=== PATIENT | male | born 1985 | race Caucasian/White ===

== ENCOUNTER 2024-08-23 23:22 | Emergency (ER) | payer BC, SELFPAY ==
[2024-08-23 23:27] VITALS: BP 139/98; PULSE 73; RESP 16; TEMP 36.4; O2SAT 98; BMI 25.1
[2024-08-24] MEDS: TETANUS/DIPHTH/PERTUSSIS 0.5 ML SYRINGE IM (01:24)
[2024-08-24] MEDS: cephALEXin 500 MG CAPSULE 1000 MG PO (01:24)
--- OUTSIDE RECORDS SUMMARY | 2024-08-24 01:38 | XMS_ITS | Clinical Summary ---
Author Organization [employer] [facility] Address [address] [place] [id number] Care Team Providers Care Sterile Processing Technologist Name Role Phone Mallorie Colvin FRONT OFFICE COORDINATOR Unavailable Unavailable Júnior Griffin MD Primary Care Provider Allergies Active Allergy Reactions Criticality Noted Date Comments Dust Mites Other - Describe In Comment Field Medium 01/27/2015 Congestion Sulfa (Sulfonamide Antibiotics) Hives Low 01/27/2015 Medications lisinopriL (PRINIVIL; ZESTRIL) 40 mg tabletIndication s:Essential hypertension Take 1 Tablet (40 mg) by mouth once daily. 90 Tablet 3 09/26/19 24 Active propranolol ER (INDERAL LA) 60 mg Cs24 Sustained-Releas e capsuleIndicatio ns:Anxiety Take 1 Capsule (60 mg) by mouth once daily. 90 Capsule 3 09/26/19 24 Active anastrozole (ARIMIDEX) 1 mg tabletIndication s:Low testosterone Take 1/2 tablet three times per week 15 Tablet 2 12/29/19 24 Active clonazePAM (KLONOPIN) 0.5 mg tabletIndication s:Anxiety TAKE 1 TABLET BY MOUTH ONCE DAILY NEEDED FOR ANXIETY 50 Tablet 06/05/19 25 Active testosterone cypionate 100 mg/mL oil injectionIndicat ions:Low testosterone INJECT 1/2 (ONE-HALF) ML INTRAMUSCULARLY TWICE A WEEK 10 mL 1 06/23/19 25 Active Active Problems Problem Noted Date Diagnosed Date Migraine with aura, not intr actable, without status migrainosus 10/02/2018 Hypogonadism in male 02/14/2018 ADRIAN (obstructive sleep apnea) 02/13/2018 Overview (02/13/2018): Wears mouthguard Essential hypertension 01/27/2015 Anxiety 10/25/2011 Male pattern baldness 10/14/2010 Encounters Date Type Department Care Team Description 06/21/2024 Refill [facility] [address] [place] [address] Júnior Griffin MD Refill Request (Testosterone Cypionate) 06/04/2024 Refill [facility] [address] [place] [address] Júnior Griffin MD Refill Request (Clonazepam) from Last 3 Months Immunizations Immunization Administration Dates Next Due DT (Age < 7 years) 10/11/1995 Hepatitis B (Peds) 12/28/1995,11/24/1995 Influenza Virus, Unspecified 01/30/2016,01/03/20 15,12/25/2013 Influenza, IIV3 (Age 6-35 mos) 12/20/2012 Influenza, IIV3 (Age >=3 years) 02/02/2017,12/31,01/03/2012 Influenza, IIV4 01/04/2019, 8,12/31/2016, 6 Td (Age >=7 Years) 10/02/2018 10/02/2028 Tdap 05/25/2007 Family History Medical History Relation Name Comments Cancer-prostate Father Hypertension Father Parkinsonism Father Relation Name Status Comments Father Social History Tobacco Use Types Packs/Day Years Used Date Smoking Tobacco: Never Smokeless Tobacco: Never Alcohol Use Standard Drinks/Week Comments Not Currently 3 (1 standard drink = 0.6 oz pur e alcohol) weekends PHQ-2 Answer Date Recorded PHQ-2 TOTAL SCORE 1 09/26/2023 Social Connections Answer Date Recorded Do you often feel lonely or isolated from those around you? 0 12/29/2023 Financial Resource Strain Answer Date R ecorded Difficulty of Paying Living Expenses 3 12/29/2023 Difficulty of Paying Living Expenses Not on file 12/29/2023 Food Insecurity Answer Date Recorded Do you worry your food will run out before you are able to buy more? 1 12/29/2023 Transportation Needs Answer Date Record ed Does lack of transportation keep you from medica l appointments? 1 12/29/2023 Does lack of transportation keep you from work, meetings or getting things that you need? 1 12/29/2023 Housing Stability Answer Date Recorded What is your housing situation today? 1 12/29/2023 Utilities Answer Date Recorded Do you have trouble paying f or utilities (for example, heat, electricity, water, phone)? 1 12/29/2023 Sex and Gender Information Value Date Recorded Sex Assigned at Not on file Legal Sex Male 7:21 AM [employer] Gender Identity Not on file Sexual Orientation Not on file Obstetrics History Para Term AB IAB SAB Ectopic Multiple Livin g Live Births 0 0 0 0 0 0 0 0 Last Filed Vital Signs Vital Sign Reading Time Taken Comments Blood Pressure 134/88 12/29/2023 1:27 PM CDT Pulse 84 12/29/2023 1:27 PM CDT Temperature 36.6 C (97.9 F) 03/16/2019 5:26 PM [employer] Respiratory Rate 16 03/16/2019 5:26 PM [employer] MECHANIC Oxygen Saturation 97% 03/16/2019 5:26 PM [employer]INE MECHANIC Inhaled Oxygen Concentration - - Weight 85.7 kg (189 lb) 12/29/2023 1:27 PM CDT Height 182.9 cm (6') 09/26/2023 3:34 PM CDT Body Mass Index 25.63 09/26/2023 3:34 PM CDT Plan of Treatment Health Maintenance Due Date Last Done Comments COVID-19 vaccine series (#1) 02/09/1988 HIV for age 15-65 1998 Hepatitis C screening for age 18-79 2001 BMI (ht and wt on same day) for age 18+ 09/25/2024 09/26/2023, 10/06/2020, 12/07/2018, Additional history exists Depression screening for age 12+ 09/25/2024 09/26/2023 Influenza Vaccine (Season Ended) 2024 01/04/2019, 12/28/2017, 02/02/2017, Additional history exists Lipids for age 35-44 09/25/2028 09/26/2023 Tetanus booster 10/02/2028 10/02/2018, 05/25/2007 Tdap Completed 05/25/2007 Pneumococcal series for age 6-49 Aged Out No longer eligible based on patient's age to complete this topic Procedures Procedure Name Priority Date/Time Associated Diagnosis Comments LIPID PANEL W REFLEX MEASURED LDL Routine 09/26/2023 4:35 PM CDT Lipid screening from Last 3 Months or Most Recently Relevant to Health Maintenance Results * (ABNORMAL) LIPID PANEL W REFLEX MEASURED LDL (09/26/2023 4:35 PM CDT) CHOLESTEROL,TOTAL 169 100 - 199 mg/dL 09/27/2023 7:44 AM CDT [facility] Comment: Cholesterol, Total Reference Ranges Desirable <200 mg/dL Borderline 200-239 mg/dL High >=240 mg/dL TRIGLYCERIDES 97 <150 mg/dL 09/27/2023 7:44 AM CDT [facility] HDL CHOLESTEROL 27(L) >40 mg/dL 7:44 AM CDT [facility] NON-HDL CHOLESTEROL 142 <145 mg/dl 09/27/2023 7:44 AM CDT [facility] CHOL/HDL RATIO 6.26(H) <4.50 09/27/2023 7:44 AM CDT [facility] LDL CHOLESTEROL 123 <=130 mg/dL 09/27/2023 7:44 AM CDT [facility] VLDL CHOLESTEROL 19 <=30 mg/dL 09/27/2023 7:44 AM CDT [facility] PROVIDER ORDERED STATUS RANDOM 09/27/2023 7:44 AM CDT [facility] Blood BLOOD SPECIMEN / Unknown Venipuncture / Unknown 09/26/2023 4:35 PM CDT 09/26/2023 4:37 PM CDT us Júnior Griffin MD CHEMISTRY Final R esult [facility] [address] [place] [address], from Last 3 Months or Most Recently Relevant to Health Maintenance Insurance [employer] [id number] [place] [id number] [facility] Care Teams Sterile Processing Technologist Relationship Specialty Start Date End Date Jún[place] [address] [place] [address] PCP - General Family Practice 02/14/18 Mallorie Colvin NP Resident 03/09/12
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
== END 2024-08-24 01:38 | disposition home or self-care (01) ==
LOC: ED 08-24 01:36
PROVIDERS: Emergency Provider Family Medicine
DX: L03.115 Cellulitis of right lower limb (principal); W22.8XXA Striking against or struck by other objects, initial encounter; Z23 Encounter for immunization
CPT/HCPCS: 90471; 90715; 99281; 99283; A9270